=== PATIENT | male | born 1975 | race African-American/Black ===

== ENCOUNTER 2018-12-26 21:36 | Emergency (ER) | payer OTHER ==
--- NOTE | 2018-12-26 21:38 | ER Report ---
History and Physical Time Seen By MD: 21:35 HPI/ROS CHIEF COMPLAINT: right leg weakness and numbness HISTORY OF PRESENT ILLNESS: This is a 43 year old male. He is a student truck driver. Finished driving [employer] and stopped at [employer] stop.. Started noticing some numbness in right leg. Then was weak and could not stand or walk. This started 30 minutes prior to arrival here in the ER. EMS was called and evaluated at the scene. The patient refused transport, but came in by taxi. He was unable to walk or get out of the cab himself and was helped in by wheelchair. He was alert and talking and had no other complaints. Blood sugar checked initially and was low normal. No vision changes. Mild headache. No nausea or vomiting. Past history of stroke back in 2011 with vision problem that resolved. 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 REVIEW OF SYSTEMS: Constitutional: No fever or chills. Eyes: as above. ENT: No sore throat. No congestion. Cardiovascular: No chest pain. No palpitations. Respiratory: No cough. No shortness of breath. Gastrointestinal: No abdominal pain. No nausea or vomiting. No change in bowel movements. Genitourinary: No dysuria or trouble with urination. Musculoskeletal: No back pain. No extremity pain. Skin: No rashes. No bruising. Neurological: As above. Allergies: Coded Allergies: No Known Drug Allergies (Unverified , 12/26/18) Home Meds Active Scripts Warfarin Sodium (COUMADIN) 7.5 Mg Tablet, 7.5 MG PO DIRECTED, #34 TAB 0 Refills Take one tablet daily except on saturday and saturday, take 1 1/2 tablets once a day. Prov:PRIMO LEVY MD 12/26/18 Reported Medications Warfarin Sodium (WARFARIN SODIUM) 5 Mg Tablet, 7.5 MG PO QDAY, TAB 12/26/18 Warfarin Sodium (WARFARIN SODIUM) 10 Mg Tablet, 11.5 MG PO QDAY, TAB 12/26/18 Reviewed Nurses Notes: Yes Constitutional Vital Sign - Last 24 Hours 12/26/18 12/26/18 12/26/18 12/26/18 21:36 21:38 21:50 22:00 Temp 98.1 Pulse ??? 90 Resp 15 B/P (MAP) 93/77 (82) 93/77 102/82 (89) 98/84 (89) Pulse Ox 93 O2 Delivery Room Air 12/26/18 12/26/18 12/26/18 12/26/18 22:06 22:10 22:20 22:30 Pulse 87 Resp 17 B/P (MAP) 102/64 (77) 83/71 (75) ???/??? (1665) 12/26/18 12/26/18 12/26/18 12/26/18 22:36 22:40 22:50 23:00 Pulse ??? B/P (MAP) 113/57 (75) 125/72 (89) 117/60 (79) 12/26/18 12/26/18 12/26/18 23:06 23:10 23:15 Pulse 89 82 Resp 30 26 B/P (MAP) 95/84 (88) Pulse Ox 95 93 Physical Exam General Appearance: The patient is alert. No acute distress. Non-toxic in appearance. Eyes: Pupils are equal, round. Reactive to light. No pallor, injection or icterus. Extraocular movements are intact. Normal visual mistry by confrontation exam. ENT: Mucous membranes are moist. Normal oral mucosa. Posterior oropharynx is normal. Neck: Supple and non tender. Respiratory: Lungs are clear to auscultation. Cardiovascular: Regular rate and rhythm. No murmurs, gallops or rubs. Normal capillary refill. No edema. No carotid bruits. Gastrointestinal: Abdomen is soft and non tender. Nondistended. Normal active bowel sounds. Neurological: Alert and oriented x3. Cranial nerve exam with eye exam as noted above, midline tongue and symmetric palate elevation, no facial weakness, normal facial sensation, normal shoulder shrug. Has decreased sensation in right leg, but no weakness or coordination problems on exam. NIH stroke scale done and scored 1 point for the sensory changes, the rest was negative. Skin: Warm and dry. No rashes. Musculoskeletal: Extremities are nontender. Full range of motion. No tenderness in palpation of the cervical, thoracic and lumbar spine. DIFFERENTIAL DIAGNOSIS: After history and physical exam, differential diagnosis was considered for a patient with weakness and numbness initially, but now only numbness on exam, and the numbness seems to be improving as well. Medical Decision Making Data Points Result Diagram: 12/26/18213712/26/182137 Laboratory Hematology Test 12/26/18 21:38 12/26/18 21:39 Red Blood Count 5.15 M/uL (4.00-5.60) Mean Corpuscular Volume 85.7 fL (80.0-96.0) Mean Corpuscular Hemoglobin 28.8 pg (26.0-33.0) Mean Corpuscular Hemoglobin Concent 33.6 g/dL (32.0-36.0) Red Cell Distribution Width 14.0 % (11.5-14.5) Mean Platelet Volume 8.1 fL (7.2-11.1) Neutrophils (%) (Auto) 67.4 % (39.4-72.5) Lymphocytes (%) (Auto) 21.3 % (17.6-49.6) Monocytes (%) (Auto) 6.8 % (4.1-12.4) Eosinophils (%) (Auto) 1.6 % (0.4-6.7) Basophils (%) (Auto) 2.9 % (0.3-1.4) Nucleated RBC Relative Count (auto) 0.0 /100WBC Neutrophils # (Auto) 6.0 K/uL (2.0-7.4) Lymphocytes # (Auto) 1.9 K/uL (1.3-3.6) Monocytes # (Auto) 0.6 K/uL (0.3-1.0) Eosinophils # (Auto) 0.1 K/uL (0.0-0.5) Basophils # (Auto) 0.3 K/uL (0.0-0.1) Nucleated RBC Absolute Count (auto) 0.00 K/uL Prothrombin Time 13.9 seconds (12.0-14.4) Prothromb Time International Ratio 1.06 Activated Partial Thromboplast Time 28 seconds (23-35) Sodium Level 139 mmol/L (137-145) Potassium Level 3.5 mmol/L (3.5-5.0) Chloride Level 104 mmol/L (98-107) Carbon Dioxide Level 27 mmol/L (22-30) Blood Urea Nitrogen 13 mg/dl (9-21) Creatinine 1.30 mg/dl (0.66-1.25) Glomerular Filtration Rate Calc > 60.0 Random Glucose 92 mg/dl (75-110) Calcium Level 9.4 mg/dl (8.4-10.2) Total Bilirubin 0.9 mg/dl (0.2-1.3) Aspartate Amino Transf (AST/SGOT) 28 U/L (0-35) Alanine Aminotransferase (ALT/SGPT) 24 U/L (0-56) Alkaline Phosphatase 75 U/L (0-126) Troponin I < 0.012 ng/ml Total Protein 8.1 g/dl (6.3-8.2) Albumin 4.6 g/dl (3.5-5.0) Whole Blood Glucose 86 mg/DL (75-110) Chemistry Test 12/26/18 21:38 12/26/18 21:39 White Blood Count 8.9 k/uL (4.5-11.0) Red Blood Count 5.15 M/uL (4.00-5.60) Hemoglobin 14.8 g/dL (14.0-18.0) Hematocrit 44.1 % (42.0-52.0) Mean Corpuscular Volume 85.7 fL (80.0-96.0) Mean Corpuscular Hemoglobin 28.8 pg (26.0-33.0) Mean Corpuscular Hemoglobin Concent 33.6 g/dL (32.0-36.0) Red Cell Distribution Width 14.0 % (11.5-14.5) Platelet Count 262 K/uL (150-450) Mean Platelet Volume 8.1 fL (7.2-11.1) Neutrophils (%) (Auto) 67.4 % (39.4-72.5) Lymphocytes (%) (Auto) 21.3 % (17.6-49.6) Monocytes (%) (Auto) 6.8 % (4.1-12.4) Eosinophils (%) (Auto) 1.6 % (0.4-6.7) Basophils (%) (Auto) 2.9 % (0.3-1.4) Nucleated RBC Relative Count (auto) 0.0 /100WBC Neutrophils # (Auto) 6.0 K/uL (2.0-7.4) Lymphocytes # (Auto) 1.9 K/uL (1.3-3.6) Monocytes # (Auto) 0.6 K/uL (0.3-1.0) Eosinophils # (Auto) 0.1 K/uL (0.0-0.5) Basophils # (Auto) 0.3 K/uL (0.0-0.1) Nucleated RBC Absolute Count (auto) 0.00 K/uL Prothrombin Time 13.9 seconds (12.0-14.4) Prothromb Time International Ratio 1.06 Activated Partial Thromboplast Time 28 seconds (23-35) Glomerular Filtration Rate Calc > 60.0 Calcium Level 9.4 mg/dl (8.4-10.2) Total Bilirubin 0.9 mg/dl (0.2-1.3) Aspartate Amino Transf (AST/SGOT) 28 U/L (0-35) Alanine Aminotransferase (ALT/SGPT) 24 U/L (0-56) Alkaline Phosphatase 75 U/L (0-126) Troponin I < 0.012 ng/ml Total Protein 8.1 g/dl (6.3-8.2) Albumin 4.6 g/dl (3.5-5.0) Whole Blood Glucose 86 mg/DL (75-110) Coagulation Test 12/26/18 21:38 Prothrombin Time 13.9 seconds Prothromb Time International Ratio 1.06 Activated Partial Thromboplast Time 28 seconds EKG/Imaging EKG Interpretation 12 lead EKG: Rhythm: normal sinus rhythm Bandera: Left axis deviation QRS: Right bundle branch block ST segments: Otherwise negative Monitor Interpretation: Normal Sinus Rhythm Imaging EXAMINATION: CT head without IV contrast HISTORY: Right leg weakness. Possible CVA. TECHNIQUE: Axial CT images of the head were obtained from the vertex to the skull base without IV contrast, with coronal and sagittal 2D reconstructed images. One of the following dose optimization techniques was utilized in the performance of this exam: Automated exposure control; adjustment of the mA and/or kV according to the patient's size; or use of an iterative reconstr uction technique. Specific details can be referenced in the facility's radiology CT exam operational policy. COMPARISON: None. FINDINGS: There is a small region of chronic appearing encephalomalacia in the left occipital lobe, compatible with old infarct. No CT evidence of intracranial hemorrhage, mass lesion, or acute infarct. No midline shift or extra-axial fluid collections. Sanchez-white differentiation is otherwise maintained. There is a cavum septum pellucidum, a normal ventricular variant. The calvarium is intact. The partially visualized paranasal sinuses and mastoid air cells are unopacified. IMPRESSION: 1. No CT evidence of acute intracranial pathology. 2. Small region of chronic encephalomalacia in the left occipital lobe, compatible with old infarct. Findings were discussed with PRIMO LEVY at 12/26/2018 10:05 PM. Report Dictated By: Anastacio Quiñones MD at 12/26/2018 10:[address] angiogram head and neck INDICATION: Changes ischemic attack, right leg weakness. COMPARISON: Same-day noncontrast head CT. TECHNIQUE: Axial CT images were obtained through the cerebral and neck vasculature. Multiplanar reformatted images were provided. 2-D and 3-D imaging was performed. Evaluation of internal carotid stenosis was performed per NASCET criteria. A total of 75 mL Isovue-370 IV contrast was administered. One of the following dose optimization techniques was utilized in the performance of this exam: Automated exposure control; adjustment of the mA and/o r kV according to the patient's size; or use of an iterative reconstruction technique. Specific details can be referenced in the facility's radiology CT exam operational policy. FINDINGS: The middle cerebral arteries, anterior cerebral arteries, posterior cerebral arteries as well as the bilateral vertebral arteries and carotid arteries are patent without focal stricture or aneurysm. There are no significant atherosclerotic calcifications seen. The visualized aortic arch and great vessels off the aortic arch are unremarkable. Dural venous sinuses are patent. Small area of encephalomalacia in the left occipital lobe consistent with remote infarct as previously described. No acute osseous abnormality. Soft tissues are nonacute. Lung apices are clear. IMPRESSION: No acute abnormality of the neck and cerebral vasculature. Dr. Garza discussed this case with PRIMO LEVY on 12/26/2018 11:[address] was performed separately and previously reported. Report Dictated By: Luis Alberto Garza MD at 12/26/2018 11:07 PM ED Course/Re-evaluation Clinical Indication for ER IV: Hydration, IV Access ED Course Patient brought to the exam room, vitals and blood glucose obtained, sent to CT scan for STAT head non-contrast CT scan of the brain. Brought back to the Exam room, IV access and labs obtained, EKG obtained, NIH stroke scale done. Tele- stroke Neurology evaluation by Dr. [facility] at [facility]. Head CT scan is reported as no acute bleeding and signs of his old occipital lobe infarct. Recommended further treatment and Monitoring of TIA. Most likely source would be the heart valves, especially because he is not on his Coumadin. I discussed the findings of TIA further with the patient. Described recommendation to stay in hospital for further workup and treatment and the reasons for this. Explained the dangers associated with not being on his Coumadin. He expressed understanding. He does not want to stay and his symptoms have now completely resolved. He did allow us to do CTA of the head and neck to rule out large vessel problems, and these were negative. He will re-start his Coumadin. Normally takes 7.5mg tablets, one a day for 5 days of the week and 1 1/2 tabs on 2 days of the week. He is willing to re-start this and we gave his 1 1/2 tablet dose now. He did not want other medications or treatments. Discussed that he is still at high risk and should stop and seek further care should his symptoms or other problems occur and discussed some of the things he should watch out for. Decision to Disposition Date: December 26, 2018 Decision to Disposition Time: 23:27 Depart Departure Latest Vital Signs Vital Signs Date Time Temp Pulse Resp B/P (MAP) Pulse Ox O2 Delivery O2 Flow Rate FiO2 12/26/18 23:15 82 26 93 12/26/18 23:10 95/84 (88) 12/26/18 21:38 98.1 Room Air Impression: Primary Impression: TIA (transient ischemic attack) Condition: Improved Disposition: HOME OR SELF-CARE New Scripts Warfarin Sodium (COUMADIN) 7.5 Mg Tablet 7.5 MG PO DIRECTED, #34 TAB 0 Refills Take one tablet daily except on saturday and saturday, take 1 1/2 tablets once a day. Prov: PRIMO LEVY MD 12/26/18 Patient Instructions: Transient Ischemic Attack (ED) Additional Instructions: We would recommend staying in the hospital for further evaluation as we discussed because of the risk of stroke. We discussed tonight that we think you had a mini-stroke or a TIA (transient ischemic attack). This was likely a clot coming from your heart valve because you are not on the blood thinner Coumadin. Re-start your Coumadin at the same dose you were on previously. Have your blood levels checked in 3 days after re-starting this. If you have further symptoms of weakness, numbness, trouble with vision or speak ing, or difficulty walking or balance, please stop and be re-evaluated at the nearest emergency room. PRIMO LEVY MD December 26, 2018 21:38
[2018-12-26 21:47] LABS: PLATELET COUNT, AUTOMATED 262 K/uL (150-450)
[2018-12-26] MEDS ORDERED: WARF10TA10 PO (21:52)
[2018-12-26] MEDS ORDERED: WARF5TAB23 PO (21:52)
[2018-12-26 21:56] LABS: INR 1.06
--- NOTE | 2018-12-26 22:12 | RADIOLOGY IMAGING REPORT ---
FACILITY: [facility] [place] PATIENT NAME: Alfonso Cook : 1975 MR: [id number] V: [id number] EXAM DATE: ORDERING PHYSICIAN: PRIMO LEVY TECHNOLOGIST: Location: [facility] [place] Patient: Alfonso Cook : 1975 Visit/Account:[id number] Date of Sevice: 12/26/2018 EXAMINATION: CT head without IV contrast HISTORY: Right leg weakness. Possible CVA. TECHNIQUE: Axial CT images of the head were obtained from the vertex to the skull base without IV c ontrast, with coronal and sagittal 2D reconstructed images. One of the following dose optimization techniques was utilized in the performance of this exam: Autom ated exposure control; adjustment of the mA and/or kV according to the patient's size; or use of an i terative reconstruction technique. Specific details can be referenced in the facility's radiology C T exam operational policy. COMPARISON: None. FINDINGS: There is a small region of chronic appearing encephalomalacia in the left occipital lobe, compatible with old infarct. No CT evidence of intracranial hemorrhage, mass lesion, or acute infarct. No midline shift or extra-a xial fluid collections. Sanchez-white differentiation is otherwise maintained. There is a cavum septum pellucidum, a normal ventricular variant. The calvarium is intact. The partially visualized paranasal sinuses and mastoid air cells are unopaci fied. IMPRESSION: 1. No CT evidence of acute intracranial pathology. 2. Small region of chronic encephalomalacia in the left occipital lobe, compatible with old infarct. Findings were discussed with PRIMO LEVY at 12/26/2018 10:05 PM. Report Dictated By: Anastacio Quiñones MD at 12/26/2018 10:01 PM Report E-Signed By: Anastacio Quiñones MD at 12/26/2018 10:07 PM WSN:[id number]
[2018-12-26] MEDS ORDERED: IOPAMIDOL 76% 150 ML INFUS BTL 150 ML ONE (22:26)
[2018-12-26] MEDS ORDERED: NS(*) 0.9% 50 ML BAG 50 ML ONE (22:27)
--- NOTE | 2018-12-26 22:31 | EKG ---
FACILITY: [facility] [place] PATIENT NAME: LARISSA HTAKUR : [id number] MR: [id number] V: [id number] EXAM DATE: ORDERING PHYSICIAN: PRIMO LEVY TECHNOLOGIST: SHAHID Test Reason : POSSIBLE CVA Blood Pressure : / mmHG Vent. Rate : 091 BPM Atrial Rate : 091 BPM P-R Int : 162 ms QRS Dur : 140 ms QT Int : 400 ms P-R-T Axes : 076 -43 064 degrees QTc Int : 492 ms Normal sinus rhythm Left axis deviation Right bundle branch block Abnormal ECG No previous ECGs available Confirmed by Gregorio Cody ([id number]) on 12/27/2018 8:01:01 AM Referred By: Confirmed By:Gregorio Porter
[2018-12-26 23:10] VITALS: BP 95/84
--- NOTE | 2018-12-26 23:24 | RADIOLOGY IMAGING REPORT ---
FACILITY: [facility] [place] PATIENT NAME: Alfonso Cook : 1975 MR: [id number] V: [id number] EXAM DATE: ORDERING PHYSICIAN: PRIMO LEVY TECHNOLOGIST: Location: [facility] [place] Patient: Alfonso Cook : 1975 Visit/Account:[id number] Date of Sevice: 12/26/2018 CT angiogram head and neck INDICATION: Changes ischemic attack, right leg weakness. COMPARISON: Same-day noncontrast head CT. TECHNIQUE: Axial CT images were obtained through the cerebral and neck vasculature. Multiplanar ref ormatted images were provided. 2-D and 3-D imaging was performed. Evaluation of internal carotid st enosis was performed per NASCET criteria. A total of 75 mL Isovue-370 IV contrast was administered. One of the following dose optimization techniques was utilized in the performance of this exam: Autom ated exposure control; adjustment of the mA and/or kV according to the patient's size; or use of an i terative reconstruction technique. Specific details can be referenced in the facility's radiology C T exam operational policy. FINDINGS: The middle cerebral arteries, anterior cerebral arteries, posterior cerebral arteries as well as the bilateral vertebral arteries and carotid arteries are patent without focal stricture or aneurysm. Th ere are no significant atherosclerotic calcifications seen. The visualized aortic arch and great ves sels off the aortic arch are unremarkable. Dural venous sinuses are patent. Small area of encephalomalacia in the left occipital lobe consistent with remote infarct as previousl y described. No acute osseous abnormality. Soft tissues are nonacute. Lung apices are clear. IMPRESSION: No acute abnormality of the neck and cerebral vasculature. Dr. Garza discussed this case with PRIMO LEVY on 12/26/2018 11:[address] was performed separately and previously reported. Report Dictated By: Luis Alberto Garza MD at 12/26/2018 11:07 PM Report E-Signed By: Luis Alberto Garza MD at 12/26/2018 11:19 PM WSN:[id number]
--- NOTE | 2018-12-26 23:25 | RADIOLOGY IMAGING REPORT ---
FACILITY: [facility] PATIENT NAME: Alfonso Cook : 1975 MR: [id number] V: [id number] EXAM DATE: ORDERING PHYSICIAN: PRIMO LEVY [place]CHNOLOGIST: [place] [facility] [place]so [place] : 1975 Visit/Account:[id number] Date of Sevice: 12/26/2018 CT angiogram head and neck INDICATION: Changes ischemic attack, right leg weakness. COMPARISON: Same-day noncontrast head CT. TECHNIQUE: Axial CT images were obtained through the cerebral and neck vasculature. Multiplanar ref ormatted images were provided. 2-D and 3-D imaging was performed. Evaluation of internal carotid st enosis was performed per NASCET criteria. A total of 75 mL Isovue-370 IV contrast was administered. One of the following dose optimization techniques was utilized in the performance of this exam: Autom ated exposure control; adjustment of the mA and/or kV according to the patient's size; or use of an i terative reconstruction technique. Specific details can be referenced in the facility's radiology C T exam operational policy. FINDINGS: The middle cerebral arteries, anterior cerebral arteries, posterior cerebral arteries as well as the bilateral vertebral arteries and carotid arteries are patent without focal stricture or aneurysm. Th ere are no significant atherosclerotic calcifications seen. The visualized aortic arch and great ves sels off the aortic arch are unremarkable. Dural venous sinuses are patent. Small area of encephalomalacia in the left occipital lobe consistent with remote infarct as previousl y described. No acute osseous abnormality. Soft tissues are nonacute. Lung apices are clear. IMPRESSION: No acute abnormality of the neck and cerebral vasculature. Dr. Garza discussed this case with PRIMO LEVY on 12/26/2018 11:[address] was performed separately and previously reported. Report Dictated By: Luis Alberto Garaz MD at 12/26/2018 11:07 PM Report E-Signed By: Luis Alberto Garza MD at 12/26/2018 11:19 PM WSN:[id number]
[2018-12-26] MEDS ORDERED: WARF7.5T26 PO (23:29)
[2018-12-26] MEDS ORDERED: WARFARIN SOD 7.5 MG TAB PO ONE (23:30)
[2018-12-26] MEDS ORDERED: WARFARIN SOD 7.5 MG TAB ONE (23:34)
== END 2018-12-26 23:47 | disposition home or self-care (01) ==
LOC: ER 21:39
DX: G45.9 Transient cerebral ischemic attack, unspecified (principal); I45.10 Unspecified right bundle-branch block; R94.31 Abnormal electrocardiogram [ECG] [EKG]
CPT/HCPCS: 36416; 70450; 70496; 70498; 82948; 84484; 85025; 85610; 85730; 93005; 99284; J7050; Q9967; 82040; 82247; 82310; 82374; 82435; 82565; 82947; 84075; 84132; 84155; 84295; 84450; 84460; 84520